=== PATIENT | female | born 1995 | race Caucasian/White ===

== ENCOUNTER 2018-04-13 14:14 | Emergency (ER) | payer OTHER ==
[~2018-04-13] VITALS: Ht 172.7 cm; Wt 79.0 kg
[2018-04-13 14:35] VITALS: BP 119/75; PULSE 75; RESP 18; TEMP 97.6; O2SAT 99
[2018-04-13] MEDS ORDERED: SODIUM CHLOR 0.9% 1000 ML INJ 1,000 ML IV SCH (14:43)
[2018-04-13] MEDS ORDERED: MORPHINE SULFATE 4 MG/ML INJ IV PUSH ONE (14:45)
[2018-04-13] MEDS ORDERED: SODIUM CHLORIDE 0.9% FLUSH 10 ML FLUSH IV FLUSH PRN (14:45)
[2018-04-13] MEDS ORDERED: ONDANSETRON ODT 4 MG TAB PO ONE (14:45)
[2018-04-13] MEDS ORDERED: oxyCODONE/ACETAMINOPHEN 5 MG/325 MG TAB PO ONE (15:00)
--- NOTE | 2018-04-13 15:10 | PD ---
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 This is a workplace injury. Patient now has pain across the dorsal lateral left foot. She denies numbness or tingling. There is no open wound. She is unable to bear weight. She could not wiggle her toes without significant pain. Pain is 10 out of 10. She has no known drug allergies. PFSH Past Medical History ?: Not Social History Alcohol Use: No Tobacco Use: No Substance Use: No Allergies-Medications (Allergen,Severity, Reaction): Coded Allergies: No Known Allergies (Unverified , 04/13/18) Review of Systems Except as stated in HPI: all other systems reviewed are Neg General / Constitutional: No: Fever Eyes: No: Visual changes HENT: No: Headaches Cardiovascular: No: Chest Pain or Discomfort Respiratory: No: Shortness of Breath Gastrointestinal: No: Abdominal Pain Genitourinary: No: Dysuria Musculoskeletal: Positive: Arthralgias, Limited ROM, Pain Skin: No Rash Neurologic: No: Weakness Psychiatric: No: Depression Endocrine: No: Polydipsia Hematologic/Lymphatic: No: Easy Bruising Physical Exam Narrative GENERAL: Patient appears in mild to moderate distress. SKIN: Warm and dry. Normal color. Normal turgor. There is bruising across the left medial dorsal lateral foot. HEAD: Atraumatic. Normocephalic. EYES: Pupils equal and round. No scleral icterus. No injection or drainage. ENT: No nasal bleeding or discharge. Mucous membranes pink and moist. NECK: Trachea midline. No JVD. CARDIOVASCULAR: Regular rate and rhythm. RESPIRATORY: No accessory muscle use. Clear to auscultation. Breath sounds equal bilaterally. GASTROINTESTINAL: Abdomen soft, non-tender, nondistended. Hepatic and splenic margins not palpable. MUSCULOSKELETAL: Extremities without clubbing, cyanosis, or edema. No obvious deformities. Patient has pain with palpation across the dorsal lateral foot, as well as with movement of the toes. Neurovascular exam is normal however distal to the injury site. NEUROLOGICAL: Awake and alert. No obvious cranial nerve deficits. Motor grossly within normal limits. Five out of 5 muscle strength in the arms and legs. Normal speech. PSYCHIATRIC: Appropriate mood and affect; insight and judgment normal. Data Data Last Documented VS Vital Signs Date Time Temp Pulse Resp B/P (MAP) Pulse Ox O2 Delivery O2 Flow Rate FiO2 04/13/18 14:35 97.6 75 18 119/75 (90) 99 Orders Orders Iv Access Insert/Monitor (04/13/18 14:43) Ecg Monitoring (04/13/18 14:43) Oximetry (04/13/18 14:43) Morphine Inj (Morphine Inj) (04/13/18 14:45) Sodium Chlor 0.9% 1000 Ml Inj (Ns 1000 M (04/13/18 14:43) Sodium Chloride 0.9% Flush (Ns Flush) (04/13/18 14:45) Ondansetron Odt (Zofran Odt) (04/13/18 14:45) Foot, Complete (Xsm2vfo) (04/13/18 14:43) Ice/Cold Pack (04/13/18 14:43) Oxycodone-Acetamin 5-325 Mg (Percocet (04/13/18 15:00) Splinting (04/13/18 ) Crutches (04/13/18 ) MDM Medical Decision Making Medical Screen Exam Complete: Yes Emergency Medical Condition: Yes Differential Diagnosis Workplace injury. Left foot crush injury. Fracture. Narrative Course X-ray of the left foot is ordered. Ice is applied to the injured area. Patient is given Zofran 4 mg p.o. as well as Percocet 5/325 p.o. now. X-ray shows no acute process. Patient is placed in an orthotic boot for comfort. She is given crutches for comfort as well Patient will be continued on ibuprofen 800 mg 3 times daily for 10 days. Workers comp form is completed with restrictions. Patient should follow-up with her workers comp provider in 1 week to ensure resolution of symptoms. Patient can return if symptoms worsen. Diagnosis Primary Impression: Work related injury Additional Impression: Injury of left foot Qualified Codes: S99.922A - Unspecified injury of left foot, initial encounter Patient Instructions: General Instructions Additional Instructions: Patient is given Zofran 4 mg p.o. as well as Percocet 5/325 p.o. now. X-ray shows no acute process. Patient is placed in an orthotic boot for comfort. She is given crutches for comfort as well Patient will be continued on ibuprofen 800 mg 3 times daily for 10 days. Workers comp form is completed with restrictions. Patient should follow-up with her workers comp provider in 1 week to ensure resolution of symptoms. Patient can return if symptoms worsen. Med/Other Pt SpecificInfo: Prescription(s) given Disposition: 01 DISCHARGE HOME Condition: Stable Porter Pierre Apr 13, 2018 15:10
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
[2018-04-13] MEDS ORDERED: IBUP1TAB7 PO (16:10)
== END 2018-04-13 16:57 | disposition home or self-care (01) ==
LOC: NEPD 14:14
DX: S99.922A Unspecified injury of left foot, initial encounter (principal); W23.0XXA Caught, crushed, jammed, or pinched between moving objects, initial encounter; Y99.0 Civilian activity done for income or pay
CPT/HCPCS: 73630; 99283; E0113; L2114